=== PATIENT | female | born 1965 | race Caucasian/White ===

== ENCOUNTER → 2022-07-19 | Outpatient (CLI) | payer SELFPAY ==
--- NOTE | 2022-07-19 09:57 | ECHOD_ITS ---
Reason For Study: MURMUR Procedure This was a 2D Doppler, Color Flow transthoracic echocardiogram. Exam performed in department. Left Ventricle Normal LV size. Left ventricular systolic function is normal. The estimated ejection fraction is 60 %. No regional wall motion abnormalities noted. Right Ventricle Normal RV size. Normal systolic function. Atria Normal left atrium. Normal right atrium. Mitral Valve Normal mitral valve. Tricuspid Valve Normal tricuspid valve. Aortic Valve Normal aortic valve. Trisinus/trileaflet aortic valve. Pulmonic Valve Normal pulmonic valve. Great Vessels Normal aortic root. The pulmonary artery is normal size. Normal inferior vena cava. Pericardium/Pleural No pericardial effusion. MMode/2D Measurements & Calculations LVIDd: 4.1 cm IVSd: 0.84 cm Ao root diam: 2.9 cm LVIDs: 3.2 cm LVPWd: 0.87 cm RVDd: 2.7 cm FS: 21.7 % LAV(MOD-bp): 23.5 ml LVAd ap4: 18.1 cm2 LVAd ap2: 20.8 cm2 LAV(MOD-bp) Indexed: 15.1 ml/m2 LVLd ap4: 6.4 cm LVLd ap2: 7.2 cm LAV(MOD-sp2): 20.2 ml EDV(MOD-sp4): 43.7 ml EDV(MOD-sp2): 48.7 ml LAV(MOD-sp4): 24.2 ml EDV(sp4-el): 43.6 ml EDV(sp2-el): 50.7 ml LVAs ap4: 10.5 cm2 LVAs ap2: 11.0 cm2 LVLs ap4: 5.4 cm LVLs ap2: 6.0 cm ESV(MOD-sp4): 18.3 ml ESV(MOD-sp2): 17.8 ml ESV(sp4-el): 17.1 ml ESV(sp2-el): 17.0 ml EF(MOD-sp4): 58.1 % EF(MOD-sp2): 63.5 % EF(sp4-el): 60.8 % SV(MOD-sp4): 25.4 ml SV(MOD-sp2): 30.9 ml SV(sp4-el): 26.5 ml LA dimension(2D): 2.2 cm LA A4 area: 11.5 cm2 RA A4 area: 10.3 cm2 Time Measurements MV dec time: 0.18 sec Doppler Measurements & Calculations MV E max matthew: 78.7 cm/sec Lat Peak E' Matthew: 13.1 cm/sec Med Peak E' Matthew: 11.1 cm/sec MV A max matthew: 72.4 cm/sec E/E' lat: 6.0 E/E' med: 7.1 MV E/A: 1.1 MV V2 max: 103.4 cm/sec MV dec slope: 444.7 cm/sec2 Ao V2 max: 116.0 cm/sec MV max P.3 mmHg Ao max P.4 mmHg MV V2 mean: 66.0 cm/sec Ao V2 mean: 82.8 cm/sec MV mean P.9 mmHg Ao mean P.0 mmHg MV V2 VTI: 27.5 cm Ao V2 VTI: 21.7 cm AV (velocity ratio): 0.84 LV V1 max: 91.7 cm/sec PA V2 max: 103.3 cm/sec LV V1 max P.4 mmHg PA V2 mean: 83.5 cm/sec LV V1 mean P.1 mmHg LV V1 mean: 71.2 cm/sec LV V1 VTI: 18.2 cm ECHO/Echo Complete Interpretation Summary Normal LV size. Left ventricular systolic function is normal. The estimated ejection fraction is 60 %. Structurally normal valves. Ordering Physician: Annabel Mendoza Referring Physician: Annabel Mendoza Performed By: Lacy Grace, FAY, RVT
== END | disposition home or self-care (01) ==
PROVIDERS: Referring Provider Nurse Practitioner Family; Visit Provider Nurse Practitioner Family
DX: R01.1 Cardiac murmur, unspecified (principal)
CPT/HCPCS: 93306

== ENCOUNTER → 2023-12-02 | Outpatient (CLI) | payer SELFPAY ==
--- NOTE | 2023-12-02 08:25 | US_ITS ---
STUDY: ABDOMINAL ULTRASOUND REASON FOR EXAM: Female, 58 years old. UPPER ABD PAIN TECHNIQUE: Transabdominal ultrasound was performed with real-time and static hobbs scale imaging. TECHNICAL QUALITY: Adequate. COMPARISON: None. FINDINGS: Liver: The liver measures 15.9 cm. There is increased echogenicity consistent with fatty infiltration. The bile ducts are within normal limits. There is hepatic color flow. The direction of portal flow is hepatopetal. There is no demonstrated mass lesion. Portal vein measurement: Gallbladder: Normal distended gallbladder. The gallbladder wall measures 2 mm. There is a negative sonographic Crystal''s sign. There is no pericholecystic fluid. There are no gallstones. Common Bile Duct (C.B.D.): The common bile duct measures 3 mm. Pancreas: Normal size of the head, body and tail of the pancreas. There is normal echogenicity of the pancreas. There is no demonstrated pancreatic mass or cyst. Spleen: Normal size of the spleen. The spleen measures 8.7 cm. Right Kidney: Normal size of the right kidney. The right kidney measures 9.7 x 4.9 x 3.1 cm. Normal renal cortex. The right cortex measures 1.0 cm. There is no demonstrated renal mass or cyst. There is no right hydronephrosis. Left Kidney: Normal size of the left kidney. The left kidney measures 9.9 x 4.6 x 4.2 cm. Normal renal cortex. The left cortex measures 1.3 cm. There is no demonstrated renal mass or cyst. There is no left hydronephrosis. Aorta: Tapers normally I.V.C.: The IVC is patent. There is no ascites. US/Abdomen Complete IMPRESSION: Fatty infiltration of the liver, no discrete lesion Electronically Signed: Matthew Iglesias MD at 13:01 EDT ,
== END | disposition home or self-care (01) ==
PROVIDERS: PCP Nurse Practitioner Family; Referring Provider Nurse Practitioner Family; Visit Provider Nurse Practitioner Family
DX: Z13.220 Encounter for screening for lipoid disorders (principal); Z83.2 Family history of diseases of the blood and blood-forming organs and certain disorders involving the immune mechanism; Z82.49 Family history of ischemic heart disease and other diseases of the circulatory system; R10.10 Upper abdominal pain, unspecified; R06.00 Dyspnea, unspecified
CPT/HCPCS: 36415; 76700